=== PATIENT | male | born 1955 | race Hispanic/Latino ===

== ENCOUNTER 2022-09-03 12:10 | Inpatient (IN) | payer OTHER, SELFPAY ==
[2022-09-03] MEDS ORDERED: Fentanyl 100 MCG/2 ML VIAL ONE (12:17)
[2022-09-03] MEDS ORDERED: Boostrix 0.5 ML (Tdap) VIAL (>/=7 yrs of age) ONE (12:17)
[2022-09-03] MEDS ORDERED: Iopamidol-370 76% 500 ML 1 ML ONE ×2 (12:18→12:22)
[2022-09-03 12:43] LABS: #Basophils 0.1 thou/uL (0.0-0.2); #Eosinphils 0.2 thou/uL (0.0-0.7); #Monocytes 0.7 thou/uL (0.11-0.59); #Neutrophils 7.1 thou/uL (1.40-6.50); %Basophils 0.6 % (0.0-1.0); %Eosinophils 2.1 % (0.0-10.0); %Lymphocytes 27.1 % (21.0-51.0); %Monocytes 6.6 % (0.0-10.0); %Neutrophils 63.7 % (42.0-75.0); Hemoglobin 14.1 g/dL (14.0-18.0); Mean Corpuscular HGB CONC 32.6 g/dL (32.0-36.0); Mean Corpuscular Hemoglobin 28.5 pg (27.0-31.0); Mean Corpuscular Volume 87.4 fl (78.0-98.0); Mean Platelet Volume 7.6 fL (7.4-10.4); Platelet Count 237 10x3/uL (130-400); RBC Distribution Width 13.2 % (11.5-14.5); Red Blood Cell (RBC) Count 4.96 mill/uL (4.70-6.10); White Blood Cell (WBC) Count 11.2 10x3/uL (4.8-10.8)
[2022-09-03 13:12] LABS: ALT (SGPT) 54 U/L (8-55); AST (SGOT) 77 U/L (5-34); Albumin 4.2 g/dL (3.4-4.8); Alkaline Phosphatase 49 U/L (40-110); Anion Gap 16 mmol/L (10-20); BUN (Urea Nitrogen) 22 mg/dL (8.4-25.7); Bilirubin, Total 0.4 mg/dL (0.2-1.2); Calc. Creatinine Clearance 0 mL/min (70-130); Calcium 9.1 mg/dL (7.8-10.44); Carbon Dioxide 22 mmol/L (23-31); Chloride 105 mmol/L (98-107); Estimated GFR 82; Globulin 3.1 g/dL (2.4-3.5); Glucose 149 mg/dL (80-115); Protein, Total 7.3 g/dL (5.8-8.1); Sodium 139 mmol/L (136-145)
[2022-09-03] MEDS ORDERED: Ketorolac Tromethamine 30 MG/ML VIAL ONE (14:31)
[2022-09-03] MEDS ORDERED: Dextrose 50% Abboject 50 ML SYRINGE SLOW IVP PRN (15:05)
[2022-09-03] MEDS ORDERED: Ondansetron PF 4 MG/2 ML Vial IVP PRN (15:05)
[2022-09-03] MEDS ORDERED: Morphine 4 MG/ML VIAL SLOW IVP PRN (15:05)
[2022-09-03] MEDS ORDERED: Ipratropium/Albuterol 3 ML NEB NEB PRN (15:05)
[2022-09-03] MEDS ORDERED: Dextrose 5% in Water 1,000 ML IV PRN (15:05)
[2022-09-03] MEDS ORDERED: hydrALAZINE 20 MG/ML VIAL SLOW IVP PRN (15:05)
[2022-09-03] MEDS ORDERED: traMADol HCl 50 MG TAB PO PRN (15:06)
[2022-09-03] MEDS ORDERED: Cyclobenzaprine 10 MG TAB PO PRN (15:06)
[2022-09-03] MEDS ORDERED: Sodium Chloride 0.9% 1,000 ML IV SCH (15:15)
[2022-09-03 16:09] LABS: Prothrombin Time 13.1 sec (12.0-14.7)
[2022-09-03 16:10] LABS: PTT 26.9 sec (22.9-36.1)
[2022-09-03 16:17] LABS: Magnesium 2.1 mg/dL (1.6-2.6)
[2022-09-03] MEDS ORDERED: PHOS-NAK 1 PKT PACK PO SCH (17:15)
[2022-09-03] MEDS: Ketorolac Tromethamine 30 MG/ML VIAL IVP SCH (18:00)
[2022-09-03] MEDS: Acetaminophen 500 MG TAB PO SCH ×2 (18:00→23:00)
[2022-09-03] MEDS: Ipratropium/Albuterol 3 ML NEB NEB SCH (19:49)
[2022-09-03] MEDS ORDERED: Famotidine 20 MG TAB PO SCH (21:00)
[2022-09-03 21:02] LABS: SARS-CoV-2 NAA Rapid Test Not Detected (NotDetected)
[2022-09-03 21:28] VITALS: BMI 26.4
[2022-09-03] MEDS ORDERED: Acetaminophen 500 MG TAB ONE (22:50)
[2022-09-03] MEDS: Gabapentin 300 MG CAP PO SCH (23:00)
[2022-09-03] MEDS: Senokot S 8.6-50 MG TAB PO SCH (23:00)
[2022-09-04] MEDS: Ketorolac Tromethamine 30 MG/ML VIAL IVP SCH ×5 (04:10→23:19)
[2022-09-04] MEDS ORDERED: Ketorolac Tromethamine 30 MG/ML VIAL ONE ×2 (04:11→12:02)
[2022-09-04] MEDS ORDERED: traMADol HCl 50 MG TAB ONE ×2 (05:16→12:02)
[2022-09-04] MEDS: traMADol HCl 50 MG TAB PO SCH ×6 (05:18→23:18)
[2022-09-04] MEDS ORDERED: Acetaminophen 500 MG TAB ONE ×2 (06:06→12:02)
[2022-09-04] MEDS: Acetaminophen 500 MG TAB PO SCH ×4 (06:20→23:18)
[2022-09-04] MEDS: Ipratropium/Albuterol 3 ML NEB NEB SCH ×3 (07:53→18:42)
[2022-09-04 08:04] LABS: #Eosinphils 0.1 thou/uL (0.0-0.7); #Lymphocytes 0.9 thou/uL (1.20-3.40); #Monocytes 0.4 thou/uL (0.11-0.59); #Neutrophils 4.5 thou/uL (1.40-6.50); %Basophils 0.7 % (0.0-1.0); %Eosinophils 1.7 % (0.0-10.0); %Lymphocytes 15.8 % (21.0-51.0); %Monocytes 6.7 % (0.0-10.0); %Neutrophils 75.1 % (42.0-75.0); Hemoglobin 13.3 g/dL (14.0-18.0); Mean Corpuscular HGB CONC 32.6 g/dL (32.0-36.0); Mean Corpuscular Hemoglobin 28.5 pg (27.0-31.0); Mean Corpuscular Volume 87.6 fl (78.0-98.0); Mean Platelet Volume 7.3 fL (7.4-10.4); Platelet Count 200 10x3/uL (130-400); RBC Distribution Width 13.2 % (11.5-14.5); Red Blood Cell (RBC) Count 4.67 mill/uL (4.70-6.10)
[2022-09-04] MEDS: Gabapentin 300 MG CAP PO SCH ×3 (08:30→20:31)
[2022-09-04] MEDS: Polyethylene Glycol 3350 17 GM Packet PO SCH (08:31)
[2022-09-04] MEDS: Senokot S 8.6-50 MG TAB PO SCH ×2 (08:31→20:31)
[2022-09-04 08:36] LABS: Anion Gap 11 mmol/L (10-20); BUN (Urea Nitrogen) 16 mg/dL (8.4-25.7); Calc. Creatinine Clearance 98 mL/min (70-130); Calcium 8.4 mg/dL (7.8-10.44); Carbon Dioxide 22 mmol/L (23-31); Chloride 105 mmol/L (98-107); Estimated GFR 97; Glucose 139 mg/dL (80-115); Phosphorus 2.8 mg/dL (2.3-4.7); Sodium 134 mmol/L (136-145)
[2022-09-04] MEDS ORDERED: PHOS-NAK 1 PKT PACK PO SCH (09:30)
[2022-09-05] MEDS: Acetaminophen 500 MG TAB PO SCH ×2 (05:29→12:08)
[2022-09-05] MEDS: traMADol HCl 50 MG TAB PO SCH ×2 (05:30→12:08)
[2022-09-05] MEDS: Ketorolac Tromethamine 30 MG/ML VIAL IVP SCH (05:30)
[2022-09-05 06:13] LABS: #Eosinphils 0.2 thou/uL (0.0-0.7); #Lymphocytes 1.2 thou/uL (1.20-3.40); #Monocytes 0.4 thou/uL (0.11-0.59); #Neutrophils 4.2 thou/uL (1.40-6.50); %Basophils 0.6 % (0.0-1.0); %Lymphocytes 19.8 % (21.0-51.0); %Monocytes 7.1 % (0.0-10.0); %Neutrophils 68.5 % (42.0-75.0); Hemoglobin 12.5 g/dL (14.0-18.0); Mean Corpuscular HGB CONC 32.9 g/dL (32.0-36.0); Mean Corpuscular Hemoglobin 29.1 pg (27.0-31.0); Mean Corpuscular Volume 88.3 fl (78.0-98.0); Mean Platelet Volume 7.3 fL (7.4-10.4); Platelet Count 178 10x3/uL (130-400); RBC Distribution Width 13.2 % (11.5-14.5); Red Blood Cell (RBC) Count 4.28 mill/uL (4.70-6.10); White Blood Cell (WBC) Count 6.2 10x3/uL (4.8-10.8)
[2022-09-05 06:30] LABS: Anion Gap 10 mmol/L (10-20); BUN (Urea Nitrogen) 17 mg/dL (8.4-25.7); Calc. Creatinine Clearance 92 mL/min (70-130); Calcium 8.6 mg/dL (7.8-10.44); Carbon Dioxide 27 mmol/L (23-31); Chloride 101 mmol/L (98-107); Estimated GFR 96; Glucose 94 mg/dL (80-115); Magnesium 2.1 mg/dL (1.6-2.6); Phosphorus 2.6 mg/dL (2.3-4.7); Potassium 4.3 mmol/L (3.5-5.1); Sodium 134 mmol/L (136-145)
[2022-09-05] MEDS: Ipratropium/Albuterol 3 ML NEB NEB SCH ×2 (06:57→13:07)
[2022-09-05] MEDS ORDERED: PHOS-NAK 1 PKT PACK PO SCH (07:30)
[2022-09-05] MEDS: Gabapentin 300 MG CAP PO SCH ×2 (09:21→14:12)
[2022-09-05] MEDS: Polyethylene Glycol 3350 17 GM Packet PO SCH (09:21)
[2022-09-05] MEDS: Senokot S 8.6-50 MG TAB PO SCH (09:21)
[2022-09-05] MEDS ORDERED: Ibuprofen 600 MG TAB PO SCH (14:00)
[2022-09-05] MEDS ORDERED: Ibuprofen 200 MG TAB PO SCH (14:00)
[2022-09-05 16:22] VITALS: BP 146/75; TEMP 97.5
== END 2022-09-05 16:45 | disposition home or self-care (01) | DRG 552 ==
LOC: ERS 12:10 → ERHOLD 14:47 → SURG B 09-04 15:14
PROVIDERS: ADMIT Surgery; ATTEND Surgery
DX: S12.500A Unspecified displaced fracture of sixth cervical vertebra, initial encounter for closed fracture (principal); S27.0XXA Traumatic pneumothorax, initial encounter; S22.20XA Unspecified fracture of sternum, initial encounter for closed fracture; S22.43XA Multiple fractures of ribs, bilateral, initial encounter for closed fracture; S22.41XA Multiple fractures of ribs, right side, initial encounter for closed fracture; S12.501A Unspecified nondisplaced fracture of sixth cervical vertebra, initial encounter for closed fracture; S05.02XA Injury of conjunctiva and corneal abrasion without foreign body, left eye, initial encounter; Z20.822 Contact with and (suspected) exposure to COVID-19; S23.41XA Sprain of ribs, initial encounter; R60.0 Localized edema; V44.6XXA Car passenger injured in collision with heavy transport vehicle or bus in traffic accident, initial encounter; Z87.11 Personal history of peptic ulcer disease; Y92.410 Unspecified street and highway as the place of occurrence of the external cause
CPT/HCPCS: 36415; 70450; 70498; 71045; 71260; 72125; 74177; 80048; 80053; 83735; 84100; 84484; 85025; 85610; 85730; 86850; 86900; 86901; 90471; 90715; 93005; 94640; 94760; 96374; 96375; G0390; J1650; J1885; J3010; J7050; J7620; Q9967; U0002

== ENCOUNTER 2022-09-17 13:18 | Outpatient (CLI) | payer OTHER | END 2022-09-17 13:19 | disposition home or self-care (01) | LOC: BICRAD 13:18 | PROVIDERS: ATTEND Surgery | DX: J95.811 Postprocedural pneumothorax (principal) | CPT/HCPCS: 71046 ==

== ENCOUNTER 2022-10-10 12:53 | Outpatient (CLI) | payer OTHER | END 2022-10-10 12:54 | disposition home or self-care (01) | LOC: TBSIIMAG 12:53 | PROVIDERS: ATTEND Neurological Surgery | DX: S12.9XXA Fracture of neck, unspecified, initial encounter (principal); M47.812 Spondylosis without myelopathy or radiculopathy, cervical region | CPT/HCPCS: 72040 ==